=== PATIENT | male | born 1980 | race African-American/Black ===

== ENCOUNTER 2020-10-22 14:30 | Emergency (ER) | payer MEDICAID, OTHER ==
[2020-10-22 14:38] VITALS: BP 133/91
[2020-10-22 15:17] LABS: Basophils # (auto) 0.1 10 ^3/uL (0-0.2); Eosinophils # (auto) 0 10 ^3/uL (0-0.8); Eosinophils % (auto) 0.6 % (0.0-7.0); Hematocrit 43.9 % (41.0-53.0); Hemoglobin 15.4 g/dL (13.5-17.5); Lymphocytes % (auto) 26.5 % (10.0-50.0); Mean Corpuscular Hemoglobin 33.2 pg (28.0-32.0); Mean Corpuscular Hgb Conc. 35.2 g/dL (32.0-36.0); Mean Corpuscular Volume 94.3 fL (80.0-100.0); Monocytes # (auto) 0.7 10 ^3/uL (0-1.3); Monocytes % (auto) 8.6 % (0.0-12.0); Neutrophils # (auto) 4.8 10 ^3/uL (1.6-8.6); Neutrophils % (auto) 63.3 % (37.0-80.0); Nucleated Red Blood Cells % 0.1 %; Platelet Count (auto) 233 10^3/uL (140-450); Red Blood Cells 4.65 10^6/uL (4.5-5.90); Red Cell Distribution Width 13.4 % (11.8-14.3); White Blood Cell 7.6 10^3/uL (4.4-10.8)
[2020-10-22 15:33] LABS: Albumin 4.3 g/dL (3.4-5.0); BUN/Creatinine Ratio 7.9; Calcium 9.4 mg/dL (8.5-10.1); Potassium 3.6 mmol/L (3.5-5.1)
[2020-10-22 15:36] LABS: Bilirubin, Total 0.4 mg/dL (0.2-1.0); Total Protein 7.6 g/dL (6.4-8.2)
== END 2020-10-22 17:05 | disposition left against medical advice (07) ==
LOC: EDBD 14:30 → EDUNIT# 14:30 → ER 14:42
DX: R10.11 Right upper quadrant pain (principal); Z53.21 Procedure and treatment not carried out due to patient leaving prior to being seen by health care provider
CPT/HCPCS: 36415; 80053; 85025; 93005

== ENCOUNTER 2021-06-19 18:20 | Emergency (ER) | payer MEDICAID ==
[~2021-06-19] VITALS: Ht 182.9 cm; Wt 90.7 kg
[2021-06-19 18:47] VITALS: BP 152/101
== END 2021-06-19 19:45 | disposition left against medical advice (07) ==
LOC: EDBD 18:20 → ER 18:20
DX: R41.82 Altered mental status, unspecified (principal); J45.909 Unspecified asthma, uncomplicated